=== PATIENT | female | born 1935 | race Caucasian/White ===

== ENCOUNTER 2016-08-28 16:23 | Emergency (ER) | payer MEDICARE, OTHER ==
[~2016-08-28] VITALS: Ht 167.6 cm; Wt 73.6 kg
[~2016-08-28 16:23] MED LIST: ASPI325T32 PO; CICL12.5 NS; HYDR25TA4 PO; LEVO5TAB13 PO; OMEP40CA36 PO; SIMV40TA5 PO; VERA40TA2 PO
[2016-08-28 16:38] VITALS: BP 137/75; PULSE 80; RESP 22; O2SAT 98
[2016-08-28 17:40] VITALS: BP 135/79; PULSE 81; RESP 18; O2SAT 97
--- NOTE | 2016-08-28 18:06 | ED.REPORT ---
HPI-Chest Pain 40 and Over Date of Service Aug 28, 2016 ED Provider: Dr. Rodriguez Pt is an 81 y/o female w/ a hx of HTN, paroxysmal atrial flutter, presenting to the ED via EMS from Urgent Care c/o a 2 hour episode of rapid palpitations that began at 14:45 today. At 14:45 today, the patient experienced rapid heart palpitations lasting 2 hours. She went home to take her usual anti-arrhythmic 80mg Verapamil and received no relief. She then went to Urgent Care at which point an EKG was performed which showed atrial fluter with rate of 167. Upon EMS arrival, the patient converted back into a normal sinus rhythm. She is asymptomatic at this point. Her last episode of arrhythmia occurred 2 weeks ago. She has not discussed anticoagulant therapy with her doctors. She c/o associated urinary frequency. Pt denies fever, chills, dysuria, CP, SOB. Nursing Notes Stated Complaint: RAPID HEART RATE Chief Complaint: Dysrhythmia/Cardiac Nursing Notes Reviewed: Yes Allergies: Coded Allergies: No Known Drug Allergies (Verified Allergy, Unknown, 06/10/15) Scheduled Hydrochlorothiazide (Hydrochlorothiazide) 25 Mg Tablet 25 MG PO DAILY Omeprazole (Omeprazole) 40 Mg Capsule.dr 40 MG PO DAILY Simvastatin (Simvastatin) 40 Mg Tablet 40 MG PO HS Verapamil (Verapamil) 40 Mg Tablet 40 MG PO TID Miscellaneous Medications Aspirin (Aspirin) 325 Mg Tablet 325 MG PO Ciclesonide (Omnaris) 12.5 Gm [place].pump 50 MCG NS Levocetirizine Dihydrochloride (Levocetirizine Dihydrochloride) 5 Mg Tablet 5 MG PO General Time Seen by MD: 18:06 Chief Complaint Other (rapid palps) Hx Obtained From: Patient, EMS Arrived By: Ambulance Sudden in Onset?: No Onset Occurred: 1 - 4 hours ago Symptom Duration: 46 - 59 minutes Severity: Current: No pain currently Severity: Maximum: No pain Similar Sx Previous: Yes Past Medical History Past Medical History Hypertension Chronic cough Paroxysmal atrial flutter Past Surgical History Breast lumpectomy Smoking History Never Smoker Review of Systems Constitutional: Denies: Chills, Fever Respiratory: Denies: Non-productive cough, Shortness of breath Cardiovascular: Reports: Palpitations, Denies: Chest pain, Dyspnea on exertion, Edema GI: Denies: Abdominal pain, Nausea, Vomiting Complete sys rev & neg: except as marked. Physical Exam Initial Vital Signs Vital Signs (First) Date Time Temp Pulse Resp B/P Pulse Ox O2 Delivery O2 Flow Rate FiO2 08/28/16 16:38 36.7 80 22 137/75 98 Room Air Initial VS: Reviewed, Vital signs normal Head / Eyes: Atraumatic, Normocephalic, PERRL ENT: Mucous membranes moist, Conjunctiva normal, No scleral icterus Neck: Supple, Full range of motion Extremities: Vascular intact, Neuro intact, No swelling, No tenderness Skin: Warm, Dry, No cyanosis Neurologic: Alert, Oriented, Nonfocal Psychiatric: Mood/affect normal, Behavior normal, Normal thought content General/Constitutional: Awake, Alert, No acute distress, Well appearing, Cooperative, Not toxic appearing Respiratory / Chest: Atraumatic, Breath sounds NL, Breath sounds = bilat, No respiratory distress, No rales, No rhonchi, No wheezing, No retractions, No stridor, No chest tenderness, No chest wall deformity, No crepitus Cardiovascular: Heart rate NL, Regular rhythm, Heart sounds NL, No gallop, No murmurs, No rubs, Cap refill not delayed, Peripheral circulation NL Abdomen: Atraumatic, Soft, Non-tender, No guarding, No rebound, No distention, No palpable mass Interpretation & Diagnostics Lab Results Interpretation Result Diagram: 08/28/16 1700 08/28/16 1700 Test 08/28/16 17:00 08/28/16 19:13 08/28/16 19:30 White Blood Count 9.7th/mm3 (3.8-10.1) Red Blood Count 4.53mil/mm3 (3.90-5.20) Hemoglobin 13.5g/dL (12.0-15.6) Hematocrit 40.5% (35.0-46.0) Mean Corpuscular Volume 89.4fL (81-100) Mean Corpuscular Hemoglobin 29.8pg (27.0-35.0) Mean Corpuscular Hemoglobin Concent 33.3% (32.0-37.0) Red Cell Distribution Width 14.3% (12.3-15.4) Platelet Count 318bil/L (150-400) Neutrophils (%) (Auto) 54.7% (40-74) Lymphocytes (%) (Auto) 34.6% (14-46) Monocytes (%) (Auto) 9.5% (4-12) Eosinophils (%) (Auto) 0.7% (0-5) Basophils (%) (Auto) 0.3% (0-3) Hold Purple Top Tube Received (Received) Hold Blue Top Tube Received (Received) Sodium Level 135mEq/L (134-144) Potassium Level 3.8mEq/L (3.5-5.2) Chloride Level 98mEq/L (97-108) Carbon Dioxide Level 22mmol/L (18-29) Blood Urea Nitrogen 16mg/dL (8-27) Creatinine 0.87mg/dL (0.57-1.00) Estimat Glomerular Filtration Rate 90mL/min (>59) Glucose Level 113mg/dL (60-99) Calcium Level 9.8mg/dL (8.5-10.1) Total Bilirubin 0.2mg/dL (0.0-1.2) Aspartate Amino Transf (AST/SGOT) 21U/L (0-50) Alanine Aminotransferase (ALT/SGPT) 13U/L (0-32) Alkaline Phosphatase 59U/L (25-165) Total Protein 7.4g/dL (6.4-8.4) Albumin 4.3g/dL (3.4-5.0) Thyroid Stimulating Hormone (TSH) 4.210uIU/mL (0.450-4.500) Hold Red Top Tube Received (Received) Hold [place] Top Tube Received (Received) Urine Color Yellow (YELLOW) Urine Appearance Clear (CLEAR,HAZY) Urine pH 7.5 (5.0-8.0) Urine Specific [place] 1.010 (1.003-1.035) Urine Protein Negativemg/dL (NEG,TRACE) Urine Glucose (UA) Negativemg/dL (NEGATIVE) Urine Ketones Negativemg/dL (NEGATIVE) Urine Occult Blood Negative (NEGATIVE) Urine Nitrite Negative (NEGATIVE) Urine Bilirubin Negative (NEGATIVE) Urine Urobilinogen Normalmg/dL (NORMAL) Urine Leukocyte Esterase Moderate (NEGATIVE) Urine RBC 0-2/hpf (0-2) Urine WBC 6-10/hpf (0-5) Urine Epithelial Cells Few/hpf (NONE-MOD) Urine Crystals None seen (NONE SEEN) Urine Bacteria Few/hpf (NONE-FEW) Urine Hyaline Casts None/lpf (NONE) Urine Granular Casts None seen (NONE SEEN) Urine Waxy Casts None seen (NONE SEEN) Urine Red Blood Cell Casts None seen (NONE SEEN) Urine White Blood Cell Casts None seen (NONE SEEN) Urine Mucus None seen (None Seen) Urine Trichomonas None seen (NONE SEEN) Urine Yeast None (NONE SEEN) Urinalysis Comment None Urine Culture Reflexed Indicated Troponin T < 0.010ug/L (0.0-0.011) ECG Interpretation Time: 17:02 Interpreted by: ED physician Normal ECG Interpretation: Normal ECG w/ rate of... (77), Normal rate, Normal sinus rhythm, No acute ischemic changes, Normal QRS, Normal axis, Normal intervals, Adequate tracing X-Ray Chest Interpretation Chest Xray Interpretation: IMPRESSION: No acute pulmonary process. Dictated by: Rupinder Gayle M.D. on 08/28/2016 at 19:24 Approved by: Rupinder Gayle M.D. on 08/28/2016 at 19:24 View: Portable, 1 view Interpretation / Wet Read by: Interpret - Radiologist Re-Eval/Medical Decision Med Decision/Clinical Course 81-year-old female history of present small atrial flutter presents for evaluation of atrial flutter. Evidently today this lasted about an hour and usually lasts 10 minutes. She presented after she converted to sinus rhythm. She is actually ready to leave when I saw her. She had normal vitals. EKG reassuring. Labs are reassuring. What is worrisome is that her chads 2 vascular score is commensurate with her being on anticoagulants. She does not wish to discuss or start anticoagulants tonight. She wants discussed this with her primary care. I did tell her that this carries at least a 2% chance of an annual stroke. She understands. I spoke with the PA on-call for her doctor and they are going to see her on Wednesday. She will return if she has any problems or worsening symptoms. Consultation : Referral / Consult Name: Leana Gore Consulted With: Primary care physician Call Returned at: 19:45 Correspondence Clerk: Agrees with eval, Agrees with plan Note: Discussed case with PCP inhalation therapy teacher for Dr. Cheema Counseled Regarding: Diagnosis, Lab results, Need for follow-up, When/why to return to ED Discharge & Departure Primary Impression: Atrial flutter, paroxysmal Disposition: Home Discharge Condition All VS Reviewed: Yes Condition: Stable Patient Instructions: Atrial Flutter (ED) Additional Instructions: The EKG taken by Urgent Care shows that you were in a rhythm called atrial flutter. This is a significant risk factor for stroke. Start taking 1 aspirin daily. You may need to be on anticoagulants. I spoke with Leana Gore who was inhalation therapy teacher for Dr. Cheema today. You need to meet with Dr. Cheema on Wednesday to figure out if you truly warrant anticoagulation. Call his office to set up an appointment. Take the copies of the EKG which show your atrial flutter and normal rhythms with you to the appointment. Return to the emergency department if you have another episode of palpitations, chest pain, shortness of breath, vomiting, you pass out, or for other concerning symptoms. Referrals: Lavell Cheema MD (PCP) Scribe Attestation Portions of this note were transcribed by Kingston Domingo. I, Dr. Rodriguez personally performed the history, physical exam and medical decision-making; I reviewed and confirmed the accuracy of the information in the transcribed note. Signed by Thuan Michelle, 08/28/16 - 1848 copies to: Lavell Cheema MD, Todd P DO Aug 28, 2016 18:06 KINGSTON DOMINGO Aug 28, 2016 18:30
[2016-08-28 18:43] LABS: BASOPHILS % (AUTO) 0.3 % (0-3); EOSINOPHILS % (AUTO) 0.7 % (0-5); MONOCYTES % (AUTO) 9.5 % (4-12); Mean Corpuscular Hemoglobin 29.8 pg (27.0-35.0); Mean Corpuscular Volume 89.4 fL (81-100); NEUTROPHILS % (AUTO) 54.7 % (40-74); Platelet Count 318 bil/L (150-400)
[2016-08-28 19:01] LABS: TROPONIN T < 0.010 ug/L (0.0-0.011)
[2016-08-28 19:25] LABS: APPEARANCE,URINE CLEAR (CLEAR,HAZY); COLOR,URINE YELLOW (YELLOW); OCCULT BLOOD,URINE NEGATIVE (NEGATIVE); PH,URINE 7.5 (5.0-8.0); UROBILINOGEN,URINE NORMAL (NORMAL)
--- NOTE | 2016-08-28 19:26 | DRSVH ---
PROCEDURE: X-RAY CHEST ONE VIEW, PORTABLE ([id number]) INDICATIONS: tachycardia TECHNIQUE: One view of the chest was acquired. COMPARISON: [facility], , CHEST 2VW, 06/12/2013, 11:18. FINDINGS: Surgical changes and devices: None. Lungs and pleura: No pleural effusions or pneumothorax. Lungs are clear. Mediastinum: Mediastinal contours appear normal. Heart size is normal. Bones and chest wall: No suspicious bony lesions. Overlying soft tissues appear unremarkable. IMPRESSION: No acute pulmonary process. Dictated by: Rupinder Gayle M.D. on 08/28/2016 at 19:24 Approved by: Rupinder Gayle M.D. on 08/28/2016 at 19:24
[2016-08-28 19:28] VITALS: BP 133/72; PULSE 79; RESP 18; O2SAT 98
[2016-08-28 20:40] VITALS: BP 144/76; PULSE 80; RESP 16; O2SAT 99
== END 2016-08-28 20:42 | disposition home or self-care (01) ==
LOC: EDSEX 16:23 → SED 16:23 → EDBD 16:23 → SED 20:42
DX: I48.92 Unspecified atrial flutter (principal); I10 Essential (primary) hypertension